=== PATIENT | male | born 1980 | race Caucasian/White ===

== ENCOUNTER 2018-01-07 19:01 | Emergency (ER) | payer OTHER ==
[2018-01-07 19:26] VITALS: BP 137/76; PULSE 103; RESP 20; TEMP 98.3; O2SAT 93
[2018-01-07] MEDS ORDERED: LISI10TA3 PO (19:34)
[2018-01-07] MEDS ORDERED: NEUR600T PO (19:34)
[2018-01-07] MEDS ORDERED: METF500T PO (19:34)
--- NOTE | 2018-01-07 21:24 | PD ---
HPI Chief Complaint: Alcohol/Drug Intoxication Time Seen by Provider: 21:05 Travel History International Travel<30 days: No Contact w/Intl Traveler<30days: No Traveled to known affect area: No History of Present Illness HPI 37-year-old male with history of alcohol dependence presents emergency department under [place] act for alcohol intoxication. Patient states he has been drunk "for 2 months". He tells me that he drank too much today. He tells me that he cannot stop drinking. Denies suicidal homicidal ideations. Denies any other illicit drug use. Has no acute medical needs at this time. [facility] Past Medical History Medical History: Denies Significant Hx Diabetes: Yes Patient Takes Glucophage: Yes Hypertension: Yes Past Surgical History Surgical History: No Previous Surgery Social History Alcohol Use: Yes (DAILY/"FROM MORNING TIL I GO TO SLEEP") Tobacco Use: Yes (2 PPD) Substance Use: Yes (MARIJUANA OCC.) Allergies-Medications (Allergen,Severity, Reaction): Coded Allergies: No Known Allergies (Unverified , 01/07/18) Reported Meds & Prescriptions Reported Meds & Active Scripts Active Reported Neurontin (Gabapentin) 600 Mg Tab 600 Mg PO TID Lisinopril 10 Mg Tab 10 Mg PO DAILY Metformin (Metformin HCl) 500 Mg Tab 500 Mg PO BIDPC Review of Systems ROS Limitations: Intoxication Except as stated in HPI: all other systems reviewed are Neg Physical Exam Exam Limitations: Intoxication Narrative GENERAL: Unkempt male patient, clinically intoxicated in no acute distress. SKIN: Focused skin assessment warm/dry. HEAD: Atraumatic. Normocephalic. EYES: Pupils equal and round. No scleral icterus. No injection or drainage. ENT: No nasal bleeding or discharge. Mucous membranes pink and moist. NECK: Trachea midline. No JVD. CARDIOVASCULAR: Regular rate and rhythm. No murmur appreciated. RESPIRATORY: No accessory muscle use. Diminished, coarse to auscultation. Breath sounds equal bilaterally. GASTROINTESTINAL: Abdomen soft, non-tender, nondistended. Hepatic and splenic margins not palpable. MUSCULOSKELETAL: No obvious deformities. No clubbing. No cyanosis. No edema. NEUROLOGICAL: Awake and alert. No obvious cranial nerve deficits. Motor grossly within normal limits. Slurred speech. Data Data Last Documented VS Vital Signs Date Time Temp Pulse Resp B/P (MAP) Pulse Ox O2 Delivery O2 Flow Rate FiO2 01/08/18 03:58 4/22/18 03:32 87 18 97 Room Air 01/07/18 19:26 98.3 Orders Orders Alcohol Withdrawal Asmt-Ciwa [id number] (01/07/18 21:23) Flumazenil Inj (Romazicon Inj) (01/07/18 21:30) Lorazepam (Ativan) (01/07/18 21:30) Lorazepam Inj (Ativan Inj) (01/07/18 21:30) Lorazepam (Ativan) (01/07/18 21:30) Lorazepam Inj (Ativan Inj) (01/07/18 21:30) Lorazepam Inj (Ativan Inj) (01/07/18 21:30) Lorazepam Inj (Ativan Inj) (01/07/18 21:30) Iv Access Insert/Monitor (01/07/18 21:23) Ed Discharge Order (01/08/18 04:43) MDM Medical Decision Making Medical Screen Exam Complete: Yes Emergency Medical Condition: Yes Medical Record Reviewed: Yes Differential Diagnosis Alcohol intoxication versus polysubstance abuse versus mood disorder versus personality disorder Narrative Course 37-year-old male presents emergency department for evaluation in her [facility]. Patient is clinically intoxicated. He admits to drinking large amount of alcohol this evening. Denies suicidal homicidal ideations. Patient will be observed until he is clinically sober at which time he will be discharged. Diagnosis Primary Impression: Alcohol intoxication Qualified Codes: F10.929 - Alcohol use, unspecified with intoxication, unspecified Referrals: [facility] (Out patient) Patient Instructions: Abuse of Alcohol (ED), General Instructions Additional Instructions: Consume alcohol in moderation Follow-up with a primary care provider Return immediately with acute worsening symptoms Med/Other Pt SpecificInfo: No Change to Meds Disposition: 01 DISCHARGE HOME Condition: Stable Candi Garner GERBER Jan 07, 2018 21:24
[2018-01-07] MEDS ORDERED: LORazepam 2 MG TAB PO PRN (21:30)
[2018-01-07] MEDS ORDERED: LORazepam 1 MG TAB PO PRN (21:30)
[2018-01-07] MEDS ORDERED: FLUMAZENIL 0.5 MG/5 ML VIAL IV PUSH PRN (21:30)
[2018-01-07] MEDS ORDERED: LORazepam 2 MG/ML VIAL IV PUSH PRN ×4 (21:30)
[2018-01-08 03:32] VITALS: BP 129/64; PULSE 87; RESP 18; O2SAT 97
== END 2018-01-08 04:48 | disposition home or self-care (01) ==
LOC: NEDAMB 19:01
DX: F10.929 Alcohol use, unspecified with intoxication, unspecified (principal); E11.9 Type 2 diabetes mellitus without complications; I10 Essential (primary) hypertension; F17.200 Nicotine dependence, unspecified, uncomplicated; Z79.84 Long term (current) use of oral hypoglycemic drugs
CPT/HCPCS: 96374; 99284; J2060

== ENCOUNTER 2018-02-23 00:46 | Emergency (ER) | payer OTHER ==
[~2018-02-23] VITALS: Ht 182.9 cm; Wt 86.0 kg
[~2018-02-23 00:46] MED LIST: LISI10TA3 PO; METF500T PO; NEUR600T PO
[2018-02-23 01:30] VITALS: BP 121/77; PULSE 102; RESP 18; TEMP 98.2; O2SAT 99
[2018-02-23] MEDS ORDERED: PERM5CRE TOPICAL (01:51)
--- NOTE | 2018-02-23 01:51 | PD ---
HPI Chief Complaint: Psychiatric Symptoms Time Seen by Provider: 01:49 Travel History International Travel<30 days: No Contact w/Intl Traveler<30days: No Traveled to known affect area: No History of Present Illness HPI 38-year-old male presents under Arias act initiated by the Police Department. According to his paperwork patient was noted to be intoxicated outside of a [employer]. He told the police that he wanted to . Patient reports that he is a heavy alcoholic and has been drinking throughout the day. He reports that he has been feeling depressed and suicidal for "a long time." Symptoms are moderate, likely aggravated by homelessness and alcohol abuse, no obvious alleviating factors. He has no other acute complaints at this time. [facility] Past Medical History Diabetes: Yes Hypertension: Yes Social History Alcohol Use: Yes (DAILY/"FROM MORNING TIL I GO TO SLEEP") Tobacco Use: Yes (2 PPD) Substance Use: Yes (MARIJUANA OCC.) Allergies-Medications (Allergen,Severity, Reaction): Coded Allergies: No Known Allergies (Unverified , 01/07/18) Reported Meds & Prescriptions Reported Meds & Active Scripts Active Permethrin Topical 5% (Permethrin) 5% Cream 1 Applic TOPICAL ONCE Reported Neurontin (Gabapentin) 600 Mg Tab 600 Mg PO TID Lisinopril 10 Mg Tab 10 Mg PO DAILY Metformin (Metformin HCl) 500 Mg Tab 500 Mg PO BIDPC Review of Systems Except as stated in HPI: all other systems reviewed are Neg Physical Exam Narrative GENERAL: Well-developed well-nourished male in no acute distress SKIN: Warm and dry. Excoriated papular lesions noted on the extremities. HEAD: Atraumatic. Normocephalic. EYES: Pupils equal and round. No scleral icterus. No injection or drainage. ENT: No nasal bleeding or discharge. Mucous membranes pink and moist. NECK: Trachea midline. No JVD. CARDIOVASCULAR: Regular rate and rhythm. No murmur appreciated. RESPIRATORY: No accessory muscle use. Clear to auscultation. Breath sounds equal bilaterally. GASTROINTESTINAL: Abdomen soft, non-tender, nondistended. Hepatic and splenic margins not palpable. MUSCULOSKELETAL: No obvious deformities. No clubbing. No cyanosis. No edema. NEUROLOGICAL: Awake and alert. No obvious cranial nerve deficits. Motor grossly within normal limits. Slurred speech Data Data Last Documented VS Vital Signs Date Time Temp Pulse Resp B/P (MAP) Pulse Ox O2 Delivery O2 Flow Rate FiO2 02/23/18 01:30 98.2 102 18 121/77 (92) 99 Room Air Orders Orders Complete Blood Count With Diff (02/23/18 01:44) Comprehensive Metabolic Panel (02/23/18 01:44) Thyroid Stimulating Hormone (02/23/18 01:44) Psych Screen (02/23/18 01:44) Drug Screen, Random Urine (02/23/18 01:44) Alcohol (Ethanol) (02/23/18 01:44) Magnesium (Mg) (02/23/18 02:37) Potassium Chloride (Kcl) (02/23/18 02:45) Potassium Chlor 20 Meq Premix (Kcl 20 Me (02/23/18 02:45) Ecg Monitoring (02/23/18 02:39) Magnesium Sulfate 1 Gm Premix (Magnesium (02/23/18 03:30) Alcohol Withdrawal Asmt-Ciwa ONCE (02/23/18 03:57) Flumazenil Inj (Romazicon Inj) (02/23/18 04:00) Lorazepam (Ativan) (02/23/18 04:00) Lorazepam Inj (Ativan Inj) (02/23/18 04:00) Lorazepam (Ativan) (02/23/18 04:00) Lorazepam Inj (Ativan Inj) (02/23/18 04:00) Lorazepam Inj (Ativan Inj) (02/23/18 04:00) Lorazepam Inj (Ativan Inj) (02/23/18 04:00) Labs Laboratory Tests Test 02/23/18 01:00 White Blood Count 9.2 TH/MM3 Red Blood Count 4.44 MIL/MM3 Hemoglobin 15.5 GM/DL Hematocrit 44.4 % Mean Corpuscular Volume 99.9 FL Mean Corpuscular Hemoglobin 35.0 PG Mean Corpuscular Hemoglobin Concent 35.0 % Red Cell Distribution Width 13.1 % Platelet Count 100 TH/MM3 Mean Platelet Volume 9.7 FL Neutrophils (%) (Auto) 51.1 % Lymphocytes (%) (Auto) 33.5 % Monocytes (%) (Auto) 10.9 % Eosinophils (%) (Auto) 3.4 % Basophils (%) (Auto) 1.1 % Neutrophils # (Auto) 4.7 TH/MM3 Lymphocytes # (Auto) 3.1 TH/MM3 Monocytes # (Auto) 1.0 TH/MM3 Eosinophils # (Auto) 0.3 TH/MM3 Basophils # (Auto) 0.1 TH/MM3 CBC Comment DIFF FINAL Differential Comment Blood Urea Nitrogen 7 MG/DL Creatinine 0.65 MG/DL Random Glucose 203 MG/DL Total Protein 8.4 GM/DL Albumin 3.4 GM/DL Calcium Level 8.9 MG/DL Alkaline Phosphatase 126 U/L Aspartate Amino Transf (AST/SGOT) 189 U/L Alanine Aminotransferase (ALT/SGPT) 111 U/L Total Bilirubin 1.0 MG/DL Sodium Level 138 MEQ/L Potassium Level 2.8 MEQ/L Chloride Level 97 MEQ/L Carbon Dioxide Level 27.4 MEQ/L Anion Gap 14 MEQ/L Estimat Glomerular Filtration Rate 137 ML/MIN Magnesium Level 1.3 MG/DL Thyroid Stimulating Hormone 3rd Gen 3.680 uIU/ML Ethyl Alcohol Level 473 MG/DL [facility] Medical Decision Making Medical Screen Exam Complete: Yes Emergency Medical Condition: Yes Medical Record Reviewed: Yes Differential Diagnosis Substance-induced mood disorder, acute psychosis, major depressive disorder, adjustment reaction Narrative Course Mental health screening discussed with the patient. Psychiatric screen ordered. Patient has an excoriated papular rash which is suspicious for scabies. He will be given a prescription for permethrin cream upon discharge. Lab work is been reviewed. Potassium is 2.8, an EKG was obtained revealing sinus rhythm with PVCs. Magnesium is 1.3. AST is 189, ALT is 111, alcohol level is 473. The patient will be given 40 mEq oral potassium chloride, 20 mEq IV potassium, 1 g of IV magnesium. CIWA precautions ordered. The patient is medically cleared. Diagnosis Primary Impression: Alcoholism Additional Impressions: Rash Hypokalemia Hypomagnesemia Elevated liver enzymes Scripts Permethrin Topical 5% (Permethrin Topical 5%) 5% Cream 1 APPLIC TOPICAL ONCE for Scabies, #1 TUBE 1 Refill Prov: Jeovany Bhakta MD 02/23/18 Jarocho Aguilera Feb 23, 2018 01:51
[2018-02-23 02:04] LABS: AUTOMATED NEUTROPHIL # 4.7 TH/MM3 (1.8-7.7); BASOPHIL # 0.1 TH/MM3 (0-0.2); BASOPHIL % 1.1 % (0.0-2.0); EOSINOPHIL # 0.3 TH/MM3 (0-0.4); EOSINOPHIL % 3.4 % (0.0-4.0); HEMATOCRIT 44.4 % (39.0-51.0); HEMOGLOBIN 15.5 GM/DL (13.0-17.0); LYMPH % 33.5 % (9.0-44.0); LYMPHOCYTE # 3.1 TH/MM3 (1.0-4.8); MEAN CELL VOLUME 99.9 FL (80.0-100.0); MEAN PLATELET VOLUME 9.7 FL (7.0-11.0); MONO % 10.9 % (0.0-8.0); NEUT % 51.1 % (16.0-70.0); PLATELET COUNT 100 TH/MM3 (150-450); RED BLOOD COUNT 4.44 MIL/MM3 (4.50-5.90); RED CELL DISTRIBUTION WIDTH 13.1 % (11.6-17.2); WHITE BLOOD COUNT 9.2 TH/MM3 (4.0-11.0)
[2018-02-23 02:36] LABS: ALBUMIN 3.4 GM/DL (3.4-5.0); ALKALINE PHOSPHATASE 126 U/L (45-117); ALT (GPT) 111 U/L (12-78); AST (GOT) 189 U/L (15-37); BICARBONATE 27.4 MEQ/L (21.0-32.0); BLOOD UREA NITROGEN 7 MG/DL (7-18); CALCIUM 8.9 MG/DL (8.5-10.1); CHLORIDE 97 MEQ/L (98-107); CREATININE 0.65 MG/DL (0.60-1.30); GLOMERULAR FILTRATION RATE 137 ML/MIN (>89); GLUCOSE,RANDOM 203 MG/DL (74-106); SODIUM (NA) 138 MEQ/L (136-145); TOTAL PROTEIN 8.4 GM/DL (6.4-8.2)
[2018-02-23] MEDS ORDERED: POTASSIUM CHLOR 20 MEQ PREMIX 100 ML IV ONE (02:45)
[2018-02-23] MEDS ORDERED: POTASSIUM CHLORIDE 20 MEQ CONTROLLED RELEASE TAB PO ONE (02:45)
[2018-02-23] MEDS ORDERED: MAGNESIUM SULFATE 1 GM PREMIX 100 ML IV ONE (03:30)
[2018-02-23] MEDS ORDERED: LORazepam 1 MG TAB PO PRN (04:00)
[2018-02-23] MEDS ORDERED: LORazepam 2 MG TAB PO PRN (04:00)
[2018-02-23] MEDS ORDERED: FLUMAZENIL 0.5 MG/5 ML VIAL IV PUSH PRN (04:00)
[2018-02-23] MEDS ORDERED: LORazepam 2 MG/ML VIAL IV PUSH PRN ×4 (04:00)
[2018-02-23 08:29] VITALS: BP 100/61; PULSE 83; RESP 14; O2SAT 94
[2018-02-23 14:47] VITALS: PULSE 100; RESP 15; O2SAT 98
--- NOTE | 2018-02-23 15:14 | EKG ---
Date Performed: 02/23/2018 Time Performed: 02:48:09 PTAGE: 38 years EKG: SINUS TACHYCARDIA WITH FREQUENT VENTRICULAR PREMATURE COMPLEXES NONSPECIFIC ST & T-WAVE ABN ORMALITY ABNORMAL ECG NO PREVIOUS TRACING DOCTOR: Mita Deglado Interpretating Date/Time 02/23/2018 15:13:39
--- NOTE | 2018-02-23 15:58 | PD ---
Physical Exam Date Seen by Provider: Feb 23, 2018 Time Seen by Provider: 15:56 Narrative 38-year-old male previously Arias acted and cleared medically for psychiatric evaluation, has been seen by psychiatric staff and deemed to be psychiatrically stable for discharge at this time. Patient is requesting transfer to [facility] for his alcohol abuse. Case management will try to get him a bus pass. Patient is given Librium 25 mg p.o. now for mild shakes secondary to alcohol withdrawal. He is otherwise medically stable for discharge at this time. Data Data Last Documented VS Vital Signs Date Time Temp Pulse Resp B/P (MAP) Pulse Ox O2 Delivery O2 Flow Rate FiO2 02/23/18 14:47 100 15 98 Room Air 02/23/18 01:30 98.2 Orders Orders Complete Blood Count With Diff (02/23/18 01:44) Comprehensive Metabolic Panel (02/23/18 01:44) Thyroid Stimulating Hormone (02/23/18 01:44) Psych Screen (02/23/18 01:44) Drug Screen, Random Urine (02/23/18 01:44) Alcohol (Ethanol) (02/23/18 01:44) Magnesium (Mg) (02/23/18 02:37) Potassium Chloride (Kcl) (02/23/18 02:45) Potassium Chlor 20 Meq Premix (Kcl 20 Me (02/23/18 02:45) Ecg Monitoring (02/23/18 02:39) Magnesium Sulfate 1 Gm Premix (Magnesium (02/23/18 03:30) Alcohol Withdrawal Asmt-Ciwa ONCE (02/23/18 03:57) Flumazenil Inj (Romazicon Inj) (02/23/18 04:00) Lorazepam (Ativan) (02/23/18 04:00) Lorazepam Inj (Ativan Inj) (02/23/18 04:00) Lorazepam (Ativan) (02/23/18 04:00) Lorazepam Inj (Ativan Inj) (02/23/18 04:00) Lorazepam Inj (Ativan Inj) (02/23/18 04:00) Lorazepam Inj (Ativan Inj) (02/23/18 04:00) Diet Regular Basic (02/23/18 Breakfast) Electrocardiogram (02/23/18 ) Chlordiazepoxide (Librium) (02/23/18 16:00) Labs Laboratory Tests Test 02/23/18 01:00 02/23/18 08:40 White Blood Count 9.2 TH/MM3 Red Blood Count 4.44 MIL/MM3 Hemoglobin 15.5 GM/DL Hematocrit 44.4 % Mean Corpuscular Volume 99.9 FL Mean Corpuscular Hemoglobin 35.0 PG Mean Corpuscular Hemoglobin Concent 35.0 % Red Cell Distribution Width 13.1 % Platelet Count 100 TH/MM3 Mean Platelet Volume 9.7 FL Neutrophils (%) (Auto) 51.1 % Lymphocytes (%) (Auto) 33.5 % Monocytes (%) (Auto) 10.9 % Eosinophils (%) (Auto) 3.4 % Basophils (%) (Auto) 1.1 % Neutrophils # (Auto) 4.7 TH/MM3 Lymphocytes # (Auto) 3.1 TH/MM3 Monocytes # (Auto) 1.0 TH/MM3 Eosinophils # (Auto) 0.3 TH/MM3 Basophils # (Auto) 0.1 TH/MM3 CBC Comment DIFF FINAL Differential Comment Blood Urea Nitrogen 7 MG/DL Creatinine 0.65 MG/DL Random Glucose 203 MG/DL Total Protein 8.4 GM/DL Albumin 3.4 GM/DL Calcium Level 8.9 MG/DL Alkaline Phosphatase 126 U/L Aspartate Amino Transf (AST/SGOT) 189 U/L Alanine Aminotransferase (ALT/SGPT) 111 U/L Total Bilirubin 1.0 MG/DL Sodium Level 138 MEQ/L Potassium Level 2.8 MEQ/L Chloride Level 97 MEQ/L Carbon Dioxide Level 27.4 MEQ/L Anion Gap 14 MEQ/L Estimat Glomerular Filtration Rate 137 ML/MIN Magnesium Level 1.3 MG/DL Thyroid Stimulating Hormone 3rd Gen 3.680 uIU/ML Ethyl Alcohol Level 473 MG/DL Urine Opiates Screen NEG Urine Barbiturates Screen NEG Urine Amphetamines Screen POS Urine Benzodiazepines Screen NEG Urine Cocaine Screen NEG Urine Cannabinoids Screen NEG MDM Medical Record Reviewed: Yes Supervised Visit with JAY JAY: Yes Narrative Course 38-year-old male previously Arias acted and cleared medically for psychiatric evaluation, has been seen by psychiatric staff and deemed to be psychiatrically stable for discharge at this time. Patient is requesting transfer to [facility] for his alcohol abuse. Case management will try to get him a bus pass. Patient is given Librium 25 mg p.o. now for mild shakes secondary to alcohol withdrawal. He is otherwise medically stable for discharge at this time. Diagnosis Primary Impression: Alcoholism Additional Impressions: Rash Elevated liver enzymes Hypokalemia Hypomagnesemia Referrals: [facility] Patient Instructions: Abuse of Alcohol (ED), General Instructions Med/Other Pt SpecificInfo: Prescription(s) given Scripts Permethrin Topical 5% (Permethrin Topical 5%) 5% Cream 1 APPLIC TOPICAL ONCE for Scabies, #1 TUBE 1 Refill Prov: Jeovany Bhakta MD 02/23/18 Disposition: 01 DISCHARGE HOME Condition: Stable Gildardo Reyna Feb 23, 2018 15:58
[2018-02-23] MEDS ORDERED: chlordiazePOXIDE 25 MG CAP PO ONE (16:00)
--- NOTE | 2018-02-23 16:07 | PD ---
History of Present Illness Chief Complaint: Psychiatric Symptoms Time Seen by Provider: 15:50 Travel History International Travel<30 Days: No Contact w/Intl Traveler<30days: No Known affected area: No Legal Status Legal Status: Arias Act Arias Act Signed By: Gabi Murillo History of Present Illness: History of Present Illness HPI 38-year-old, single, , homeless male with no previous psychiatric history presents under Arias act initiated by the [facility] Police Department. According to his paperwork, the police responded to a disturbance between 3 homeless male. They found the patient highly intoxicated the patient stated that he wanted help and that he was tired of his life and wanted to . Of note all 3 of the males were placed under Arias act and brought to the hospital. On arrival to the ED the patient had a blood alcohol level of 473 and positive toxicology for amphetamines. The patient was allowed to sober up clinically. He presented no behavioral concerns and no suicidality. Electronic medical record is reviewed. Patient was evaluated on December 2017 when he presented intoxicated. He was referred to drew [facility] Patient is seen. He is clinically sober at this time. His speech is clear. He does report feeling shaky. He has received medication for his withdrawal. He states that he was intoxicated last night. He states he does not remember that he said any particular comments. He denies any suicidal ideation, intent or plan. He does state he has a history of alcohol and other substances abuse history and that he has been to multiple rehab facilities. States his last admission was at our rehab in [facility] a few months ago. His longest period of sobriety has been only 30 days while in contained environment. He states" I would not mind going to [facility]." PFSH Past Medical History Diabetes: Yes Patient Takes Glucophage: No Hypertension: Yes Psychiatric History Psychiatric History Hx Psychiatric Treatment: No previous psychiatric history. No history of suicide attempt. History of Inpatient Treatment: No Guns or firearms in home: No Social History Patient is homeless and states has been homeless for the past 19 years. He is unemployed. Has a brother in the area. Hx Alcohol Use: Yes (DAILY/"FROM MORNING TIL I GO TO SLEEP") Hx Tobacco Use: Yes (2 PPD) Hx Substance Use: Yes (MARIJUANA OCC.) Substance Use Type: Alcohol, Amphetamines-Stimulants Hx of Substance Use Treatment: Yes (Multiple rehab admissions last one several months ago. Has been to [facility] 4 times.) Family Psychiatric History None reported Allergies-Medications (Allergen,Severity, Reaction): Coded Allergies: No Known Allergies (Unverified , 02/23/18) Reported Meds & Prescriptions Reported Meds & Active Scripts Active Permethrin Topical 5% (Permethrin) 5% Cream 1 Applic TOPICAL ONCE Reported Neurontin (Gabapentin) 600 Mg Tab 600 Mg PO TID Lisinopril 10 Mg Tab 10 Mg PO DAILY Metformin (Metformin HCl) 500 Mg Tab 500 Mg PO BIDPC Review of Systems Gastrointestinal: COMPLAINS OF: Nausea Except as stated in HPI: all other systems reviewed are Neg Mental Status Examination Appearance: Disheveled, Malodorous Consciousness: Alert Orientation: x4 Motor Activity: Other (In bad) Speech: Unremarkable Language: Adequate Fund of Knowledge: Adequate Attention and Concentration: Adequate Memory: Unremarkable Mood: Appropriate Affect: Appropriate Thought Process & Associations: Intact, Logical, Goal directed Thought Content: Appropriate Hallucination Type: None Delusion Type: None Suicidal Ideation: No Suicidal Plan: No Suicidal Intention: No Homicidal Ideation: No Homicidal Plan: No Homicidal Intention: No Insight: Poor Judgment: Impulsive MDM Medical Decision Making Medical Record Reviewed: Yes Assessment/Plan History of Present Illness HPI 38-year-old male with history of substance use disorder, mostly alcohol dependence as well as amphetamine abuse, who while drinking outside of a [employer] and intoxicated, him and his 3 buddies were all placed under Arias act alleging that the patient had verbalize suicidal ideation. The patient presented with blood alcohol level of 473 and positive toxicology for amphetamines. Once clinically sober he denies any suicidal or homicidal ideation, intent or plan. He is interested in going to [facility] at this time. He is familiar with their admission process for detox. He has [employer] bus passes to get to [facility] upon discharge when he is medically stable to do so. BA is lifted. The patient does not present any evidence of unstable mental illness. Spoke with jewelry store manager who will provide patient with bus passes to get to [facility] upon his discharge. Orders Orders Complete Blood Count With Diff (02/23/18 01:44) Comprehensive Metabolic Panel (02/23/18 01:44) Thyroid Stimulating Hormone (02/23/18 01:44) Psych Screen (02/23/18 01:44) Drug Screen, Random Urine (02/23/18 01:44) Alcohol (Ethanol) (02/23/18 01:44) Magnesium (Mg) (02/23/18 02:37) Potassium Chloride (Kcl) (02/23/18 02:45) Potassium Chlor 20 Meq Premix (Kcl 20 Me (02/23/18 02:45) Ecg Monitoring (02/23/18 02:39) Magnesium Sulfate 1 Gm Premix (Magnesium (02/23/18 03:30) Alcohol Withdrawal Asmt-Ciwa ONCE (02/23/18 03:57) Flumazenil Inj (Romazicon Inj) (02/23/18 04:00) Lorazepam (Ativan) (02/23/18 04:00) Lorazepam Inj (Ativan Inj) (02/23/18 04:00) Lorazepam (Ativan) (02/23/18 04:00) Lorazepam Inj (Ativan Inj) (02/23/18 04:00) Lorazepam Inj (Ativan Inj) (02/23/18 04:00) Lorazepam Inj (Ativan Inj) (02/23/18 04:00) Diet Regular Basic (02/23/18 Breakfast) Electrocardiogram (02/23/18 ) Chlordiazepoxide (Librium) (02/23/18 16:00) Ed Discharge Order (02/23/18 15:59) Results Vital Signs Date Time Temp Pulse Resp B/P (MAP) Pulse Ox O2 Delivery O2 Flow Rate FiO2 02/23/18 14:47 100 15 98 Room Air 02/23/18 08:29 83 14 100/61 (74) 94 Room Air 02/23/18 01:30 98.2 102 18 121/77 (92) 99 Room Air Laboratory Tests Test 02/23/18 01:00 02/23/18 08:40 White Blood Count 9.2 Red Blood Count 4.44 Hemoglobin 15.5 Hematocrit 44.4 Mean Corpuscular Volume 99.9 Mean Corpuscular Hemoglobin 35.0 Mean Corpuscular Hemoglobin Concent 35.0 Red Cell Distribution Width 13.1 Platelet Count 100 Mean Platelet Volume 9.7 Neutrophils (%) (Auto) 51.1 Lymphocytes (%) (Auto) 33.5 Monocytes (%) (Auto) 10.9 Eosinophils (%) (Auto) 3.4 Basophils (%) (Auto) 1.1 Neutrophils # (Auto) 4.7 Lymphocytes # (Auto) 3.1 Monocytes # (Auto) 1.0 Eosinophils # (Auto) 0.3 Basophils # (Auto) 0.1 CBC Comment DIFF FINAL Differential Comment Blood Urea Nitrogen 7 Creatinine 0.65 Random Glucose 203 Total Protein 8.4 Albumin 3.4 Calcium Level 8.9 Alkaline Phosphatase 126 Aspartate Amino Transf (AST/SGOT) 189 Alanine Aminotransferase (ALT/SGPT) 111 Total Bilirubin 1.0 Sodium Level 138 Potassium Level 2.8 Chloride Level 97 Carbon Dioxide Level 27.4 Anion Gap 14 Estimat Glomerular Filtration Rate 137 Magnesium Level 1.3 Thyroid Stimulating Hormone 3rd Gen 3.680 Ethyl Alcohol Level 473 Urine Opiates Screen NEG Urine Barbiturates Screen NEG Urine Amphetamines Screen POS Urine Benzodiazepines Screen NEG Urine Cocaine Screen NEG Urine Cannabinoids Screen NEG Diagnosis Primary Impression: Alcohol dependence Psychiatrically Cleared: Yes Referrals: [facility] Patient Instructions: General Instructions, Abuse of Alcohol (ED) Prescriptions Permethrin Topical 5% (Permethrin Topical 5%) 5% Cream 1 APPLIC TOPICAL ONCE for Scabies, #1 TUBE 1 Refill Prov: Jeovany Bhakta MD 02/23/18 Disposition: 01 DISCHARGE HOME Condition: Stable Problem Qualifiers Primary Impression: Alcohol dependence Qualified Codes: F10.220 - Alcohol dependence with intoxication, uncomplicated Cristy Jo [facility] Feb 23, 2018 16:06
== END 2018-02-23 17:21 | disposition home or self-care (01) ==
LOC: NEPD 00:46
DX: F10.20 Alcohol dependence, uncomplicated (principal); F15.90 Other stimulant use, unspecified, uncomplicated; R00.0 Tachycardia, unspecified; R94.31 Abnormal electrocardiogram [ECG] [EKG]; F17.200 Nicotine dependence, unspecified, uncomplicated; F12.90 Cannabis use, unspecified, uncomplicated; E11.9 Type 2 diabetes mellitus without complications; I10 Essential (primary) hypertension; Z79.899 Other long term (current) drug therapy
CPT/HCPCS: 80053; 80307; 83735; 84443; 85025; 93005; 96365; 96366; 96367; 96375; 99284; J2060; J3475; J3480